=== PATIENT | male | born 1935 | race Caucasian/White ===

== ENCOUNTER 2016-06-02 11:18 | Inpatient (IN) | payer MEDICARE, BC ==
[~2016-06-02] VITALS: Ht 177.8 cm; Wt 97.6 kg
--- NOTE | 2016-06-02 13:26 | PDOC2 ---
CONSULT Date of Admission DATE: 06/02/16 TIME: 13:26 Reason for Consult: atrial fibrillation History of Present Illness Mr Craig is a 80 year old male with history of hypertension, hyperlipidemia and sleep apnea. He presented to his PCP office today with complaints of lightheadedness on standing. An EKG done revealed atrial fibrillation so he was admitted for initiation of medical mgmt and consult was called. Mr Craig denies any history of palpitations, chest discomfort or congestive symptoms. He reports occasionally feeling like he needs to take a deep breath but denies dyspnea. He normally walks almost 2 miles daily without symptoms or stopping. He is able to work in his yard including using a push mower for an hour before needing to stop. He does report feeling like he has less energy or becomes fatigued sooner lately, especially in the evenings. He denies other complaints. He is going out of town next week and will be gone for a week. Past Medical History Hypertension hyperlipidemia GERD with remote history of esophagitis with bleeding depression, sciatica dilatation of aorta Past Surgical History prostatectomy, umbilical hernia repair and bilateral inguinal hernia repairs Family History non contributory Social History remote history of smoking, two drinks daily (none since Mar), no illicit drugs, and lives with Allergies: Coded Allergies: No Known Drug Allergies (Unverified , 06/02/16) Review of System as per HPI or negative General: Alert, Oriented X3, Cooperative, No acute distress HEENT: Atraumatic, EOMI, Other Lungs: Clear to auscultation, Normal air movement Heart: Regular rate, Normal S1, Normal S2, Other (no significant murmurs, no gallops, clicks or rubs) Abdomen: Normal bowel sounds, Soft, No tenderness Extremities: No cyanosis, No edema, Normal pulses Neuro: Normal speech, Strength at 5/5 X4 ext, Cranial nerves 3-12 NL Psych/Mental Status: Mental status NL, Mood NL VITALS BP 131/78, HR 68, afebrile. Tele - sinus rhythm with occasional PACs. Labs pending Assessment/Plan 1. Paroxysmal atrial fibrillation - now sinus rhythm. [id number] score 3. Check echocardiogram for LVEF and structural disease/valvular disease. Plan for Eliquis 5 mg BID unless above testing abnormal. Check TSH, Chemistry and CBC for baseline. Outpatient MCT for atrial fibrillation burden. Outpatient follow up in 4-6 weeks. 2. hypertension- complaints of orthostatic dizziness. Check orthos. Cardura discontinued by PCP. Resume home medications. 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
[2016-06-02 13:48] LABS: CALCIUM 8.5 mg/dL (8.5-10.1); GFR 72.3; POTASSIUM 4.1 mmol/L (3.5-5.1)
[2016-06-02 14:00] VITALS: BP 131/78
[2016-06-02 14:27] LABS: BASO % 1 % (0-3); EOS # 0.2 x10^3/uL (0.0-0.7); EOS % 3 % (0-3); HEMOGLOBIN 13.5 g/dL (13.0-17.5); LYMPH % 15 % (24-48); MEAN CORPUSCULAR HEMOGLOBIN 30 pg (25-35); MEAN CORPUSCULAR HGB CONC 33 g/dL (31-37); MEAN CORPUSCULAR VOLUME 91 fL (79-100); MONO # 0.5 x10^3/uL (0.0-1.1); MONO % 7 % (0-9); NEUT % 75 % (31-73); PLATELET COUNT 199 x10^3/uL (140-400); RED CELL DISTRIBUTION WIDTH 13.7 % (11.5-14.5); WHITE BLOOD COUNT 6.7 x10^3/uL (4.0-11.0)
--- NOTE | 2016-06-02 15:02 | EKG ---
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
[2016-06-02 16:22] VITALS: BP_SYST 107; BP_SYST 121; BP_DIAS 69; BP_DIAS 78
[2016-06-02 16:23] VITALS: BP 131/88
[2016-06-02] MEDS ORDERED: FLUT16SP NS (16:32)
[2016-06-02] MEDS ORDERED: ESCI10TA PO (16:34)
[2016-06-02] MEDS ORDERED: AMLO10TA2 PO (16:34)
[2016-06-02] MEDS ORDERED: OMEP20CA9 PO (16:34)
[2016-06-02] MEDS ORDERED: PRAV40TA2 PO (16:34)
[2016-06-02] MEDS ORDERED: LISI-334 PO (16:34)
--- NOTE | 2016-06-02 17:41 | HP ---
ADMIT DATE: 06/02/2016 HISTORY OF PRESENT ILLNESS: The patient is a 80-year-old male patient, who was admitted directly from his primary care physician's office today with a complaint of lightheadedness on standing. He apparently has had an EKG done there, which showed that he was in atrial fibrillation; however, the rate was controlled around 90. The patient himself denied any chest pain or shortness of breath. He walks about almost 2 miles, four times a week. He actually mows his lawns on his own; however, as of late, he also complained that he is becoming more tired easily. He has never been diagnosed with atrial fibrillation before and was admitted basically for further evaluation and treatment. PAST MEDICAL HISTORY: Significant for hypertension, hyperlipidemia. He is known to have gastroesophageal reflux disease, depression, sciatica and dilatation of the aorta. PAST SURGICAL HISTORY: Significant for prostatectomy for prostate cancer, three hernia repair. He underwent also esophagogastroduodenoscopy and colonoscopy. FAMILY HISTORY: He has 2 brothers. The oldest at the age of 79 secondary to severe emphysema. The second brother at the age of 71 because of thoracic aneurysm. He has half sisters. His father at age of 78 because of CVA and mother at age of 96 because of old age. SOCIAL HISTORY: He is for the last 51 years. He has one daughter and one son. He is an ex-smoker, quit ago. He drinks alcohol on a regular basis daily. 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 REVIEW OF SYSTEMS: The patient denied any blurring of vision, cataract, glaucoma or macular degeneration. Denied any earache, tinnitus or sensorineural deafness. Denied any nosebleeds, stuffy nose or postnasal drip. Denied any sore throat, sore tongue, toothache, hoarseness of voice or difficulty swallowing. Did intentionally lose about 6 bound and planning to lose more. Denied any nausea, vomiting, diarrhea or constipation. Denied any hematemesis, melena or hematochezia. Denied any dysuria, frequency or hematuria. Denied any chest pain, shortness of breath, orthopnea, paroxysmal nocturnal dyspnea. He did complain of lightheadedness, but denied any vertigo. Denied anything spinning around. Denied any chills, rigors or fever. ALLERGIES: He has no known drug allergies. MEDICATIONS: He is currently on following medications: He is on triamcinolone acetonide 0.1% cream applied to affected areas b.i.d., Flonase 1 spray to each nostril once a day, amlodipine 10 mg once a day, Cardura 2 mg at bedtime, Lexapro 10 mg once a day, lisinopril 20 mg twice a day, pravastatin 40 mg at bedtime and omeprazole 20 mg once a day. PHYSICAL EXAMINATION: GENERAL: When I examined him this afternoon, he was sitting at the edge of the bed comfortably, in no apparent respiratory distress. There is no pallor, jaundice, cyanosis, or thyromegaly. No jugular venous distension. No limb edema. VITAL SIGNS: His heart rate was 68, blood pressure 131/78, temperature was 98.8, respiratory rate was 20 and oxygen saturation was 95%. HEAD, EYES, EARS, NOSE AND THROAT: Showed normocephalic, atraumatic. NECK: Supple, with no lymphadenopathy or thyromegaly. No jugular distention. No audible bruits. HEART: Showed normal first and second heart sounds with no gallop, rub or murmur. CHEST: Clear to auscultation. No crepitation or rhonchi. ABDOMEN: Distended, soft, nontender. No guarding or rigidity. No organomegaly. All hernial orifices intact. Bowel sounds normal. NEUROLOGIC: He was awake, alert, responding appropriately. Cranial nerves intact. EXTREMITIES: He moves extremities without difficulty, ambulates without assistance or assistive devices. LABORATORY DATA: This morning showed a serum sodium 139, potassium 4.1, chloride 106, bicarbonate 25, anion gap of 8, BUN 14, creatinine 1, estimated GFR was 72 mL per minute. His glucose was 93. Calcium was 8.5, magnesium 2. His white cell count was 6700, hemoglobin 13.5, hematocrit 41, MCV 91 and platelet count of 199,000 with normal manual differential. The EKGs that came with him from the office showed that he was in atrial fibrillation with ST-T changes in lead I, aVL and lateral leads. There is also marked prolongation of QRS interval of 143 milliseconds consistent with intraventricular conduction defect. ASSESSMENT AND PLAN: We will admit the patient and put him on a telemetry bed, consult the cardiology team. I will arrange for him to have check his labs including his CBC and CMP, check thyroid function tests and check also orthostatics as he is on numerous antihypertensive medication including lisinopril, Cardura as well as amlodipine. We will arrange for him to have carotid Doppler ultrasound and decide on further management accordingly. GALLO GARCIA MD DR: RAJEEV/ángel JOB#: [id number] / [id number]
[2016-06-02 19:46] VITALS: BP 144/89
[2016-06-02] MEDS: LISINOPRIL 20 MG TABLET PO SCH (20:15)
[2016-06-02] MEDS: APIXABAN 5 MG TABLET. PO SCH (20:15)
[2016-06-02] MEDS ORDERED: PRAVASTATIN 20 MG TABLET. PO SCH (21:00)
[2016-06-02 23:01] VITALS: BP 122/81
[2016-06-03 06:30] VITALS: BP 122/72
[2016-06-03] MEDS ORDERED: PANTOPRAZOLE 40 MG TABLET. PO SCH (07:30)
[2016-06-03] MEDS: LISINOPRIL 20 MG TABLET PO SCH (08:01)
[2016-06-03] MEDS: APIXABAN 5 MG TABLET. PO SCH (08:01)
[2016-06-03] MEDS ORDERED: FLUTICASONE 50MCG/NASAL SPRAY 16GM BOTTLE. NS SCH (09:00)
[2016-06-03] MEDS ORDERED: ESCITALOPRAM 10 MG TABLET. PO SCH (09:00)
[2016-06-03] MEDS ORDERED: AMLODIPINE BESYLATE 10 MG TABLET PO SCH (09:00)
--- NOTE | 2016-06-03 14:12 | CARD ---
APPROVED REPORT EXAM: Two-dimensional and M-mode echocardiogram with Doppler and color Doppler. Other Information Quality : Average INDICATION Atrial Fibrillation 2D DIMENSIONS Left Atrium(2D)4.1 (1.6-4.0cm)IVSd1.1 (0.7-1.1cm) Aortic Root(2D)3.2 (2.0-3.7cm)LVDd5.9 (3.9-5.9cm) LVOT Diameter2.5 (1.8-2.4cm)PWd1.0 (0.7-1.1cm) LVDs3.7 (2.5-4.0cm)FS (%) 27.0 % SV112.3 mlLVEF(%)55.0 (>50%) Aortic Valve AoV Peak Christian.121.1cm/sAoV VTI24.6cm AO Peak GR.5.9mmHgLVOT Peak Christian.98.7cm/s LVOT VTI 21.73cmAO Mean GR.3mmHg KARLEE (VMAX)3.22gd4FQT (VTI)4.21cm2 Mitral Valve MV E Ackktikb98.5cm/sMV DECEL FPNZ660az MV A Ouijhnft871.1cm/sE/A Ratio0.7 Tricuspid Valve TR P. Uafrvmai180fl/sRAP TXFPUQUJ3hgCr TR Peak Gr.91mhNpGBSM66wrLg Pulmonary Vein S1 Qralxjom70.7cm/sD2 Rrrdvebp04.9cm/s LEFT VENTRICLE The left ventricle is normal size. There is normal left ventricular wall thickness. The left ventricu lar systolic function is normal and the ejection fraction is within normal range. The Ejection Fracti on is 55%. Poor visualization of the lateral wall. Otherwise, grossly normal. Transmitral Doppler alina w pattern is Grade I-abnormal relaxation pattern. RIGHT VENTRICLE The right ventricle is normal size. The right ventricular systolic function is normal. ATRIA The left atrium is mildly dilated. The right atrium is mildl to moderately dilated. The interatrial s eptum is intact with no evidence for an atrial septal defect or patent foramen ovale as noted on 2-D or Doppler imaging. AORTIC VALVE The aortic valve is not well visualized but appears to be functioning normally by Doppler interrogati on. Doppler and Color Flow revealed trace aortic regurgitation. There is no significant aortic valvul ar stenosis. MITRAL VALVE The mitral valve is normal in structure and function. There is no evidence of mitral valve prolapse. There is no mitral valve stenosis. Doppler and Color-flow revealed mild mitral regurgitation. TRICUSPID VALVE The tricuspid valve is normal in structure and function. Doppler and Color Flow revealed mild tricusp id regurgitation. There is moderate pulmonary hypertension. The PA pressure was estimated at 43 mmHg. There is no tricuspid valve stenosis. PULMONIC VALVE The pulmonic valve is not well visualized but appears to be functioning normally by Doppler interroga tion. Doppler and Color Flow revealed no pulmonic valvular regurgitation. There is no pulmonic valvul ar stenosis. GREAT VESSELS The aortic root is normal in size. The ascending aorta is mildly dilated. The IVC is dilated and reena apses greater than 50% with inspiration. PERICARDIAL EFFUSION There is no evidence of significant pericardial effusion. Critical Notification Critical Value: No <Conclusion> The left ventricular systolic function is normal and the ejection fraction is within normal range. Th e Ejection Fraction is 55%. Poor visualization of the lateral wall. Otherwise, grossly normal. Doppler and Color Flow revealed mild tricuspid regurgitation. There is moderate pulmonary hypertensio n. The PA pressure was estimated at 43 mmHg.
[2016-06-03] MEDS ORDERED: APIX5TAB PO (15:20)
[2016-06-03 15:31] VITALS: BP 137/82
--- NOTE | 2016-06-03 21:37 | DS ---
DATE OF DISCHARGE: 06/03/2016 HOSPITAL COURSE: The patient is a 80-year-old male patient who was admitted directly from his primary care physician's office with a complaint of lightheadedness and an EKG done revealed atrial fibrillation. Although his heart rate was controlled, he was admitted directly for further evaluation and initiation of medical management. His TSH was normal at 1.365. He has had an echocardiogram done, which basically showed that his left ventricular systolic function is normal and ejection fraction is within normal range with an ejection fraction of 55%. Doppler and color flow revealed mild tricuspid regurgitation. There is moderate pulmonary hypertension. The pulmonary artery pressure was estimated at 43 mmHg. A decision was made for him to be discharged home and an event monitor will be mailed to his address from the Cardiology office. He was started on apixaban 5 mg twice a day and we will follow with Dr. Smith in 6 weeks' time. PHYSICAL EXAMINATION: GENERAL: When I saw him this afternoon, he looked well and was clearly in no apparent respiratory distress. No pallor, jaundice, cyanosis, or thyromegaly. No jugular venous distension. No limb edema. VITAL SIGNS: His heart rate was 54, blood pressure was 122/72, temperature was 97.7, respiratory rate was 18 and oxygen saturation was 95%. HEAD, EYES, EARS, NOSE AND THROAT: Normocephalic, atraumatic. NECK: Supple. HEART: Showed normal first and second heart sounds with no gallop, rub or murmur. CHEST: Clear to auscultation. No crepitation or rhonchi. ABDOMEN: Distended, soft, nontender. No guarding or rigidity. No organomegaly. All hernial orifices intact. Bowel sounds normal. NEUROLOGICAL: He is awake, alert, responding appropriately. Cranial nerves are intact. He moves extremities without difficulty, ambulates without assistance or assistive devices. LABORATORY DATA: Showed a serum sodium 139, potassium 4.1, chloride 106, bicarbonate 25, anion gap of 8, BUN 14, creatinine 1. Estimated GFR was 72 mL per minute. His glucose was 93, calcium was 8.5, magnesium 2. TSH was 1.365. White cell count was 6700, hemoglobin 13.5, hematocrit 41, MCV 91 and platelet count of 199,000 with normal manual differential. As I stated his echocardiogram showed that his left ventricular systolic function was normal, the left ventricular wall thickness is normal, left ventricular systolic function is normal with an ejection fraction within normal range. The ejection fraction is 55%. Otherwise, the lateral wall was poorly visualized; however, overall this transmitral Doppler flow pattern is grade 1 abnormal relaxation pattern. Right ventricle is normal in size. Right ventricular systolic function is normal. Left atrium is mildly dilated. The right atrium is mild to moderately dilated. The interatrial septum is intact with no evidence of an atrial septal defect or patent foramen ovale. The aortic valve is not well visualized; however, appears to be functioning normally by Doppler interrogation. The mitral valve is normal in structure and function. There is no evidence of mitral valve prolapse. There is no mitral valve stenosis. Doppler and color flow revealed mitral regurgitation. There was no pericardial effusion. DISCHARGE MEDICATIONS: The patient will be discharged home to continue on following medications: Apixaban for Eliquis 5 mg twice a day, amlodipine besylate 10 mg once a day, escitalopram oxalate 10 mg once a day, Flonase 2 sprays to each nostril once a day, lisinopril 20 mg twice a day, omeprazole 20 mg once a day and pravastatin sodium 40 mg once a day. FINAL DISCHARGE DIAGNOSES: New onset of atrial fibrillation, now rate controlled, now anticoagulated on apixaban, hypertension, hyperlipidemia, gastroesophageal reflux disease. The patient will have an event monitor mailed to him from the Cardiology office and will follow with Dr. Smith in 6 weeks' time. Apparently, he was told that it is safe for him to travel to see his son in [place] ____. GALLO GARCIA MD DR: RAJEEV/ángel JOB#: [id number] / [id number]
== END 2016-06-03 17:00 | disposition home or self-care (01) | DRG 310 ==
LOC: 1 SOUTH 12:35
PROVIDERS: ADMIT Internal Medicine; ATTEND Internal Medicine
DX: I48.0 Paroxysmal atrial fibrillation (principal); E78.5 Hyperlipidemia, unspecified; I07.1 Rheumatic tricuspid insufficiency; I10 Essential (primary) hypertension; F32.9 Major depressive disorder, single episode, unspecified; R06.00 Dyspnea, unspecified; M54.30 Sciatica, unspecified side; I27.2 Other secondary pulmonary hypertension; K21.9 Gastro-esophageal reflux disease without esophagitis; Z79.01 Long term (current) use of anticoagulants; Z82.3 Family history of stroke; Z82.5 Family history of asthma and other chronic lower respiratory diseases; Z85.46 Personal history of malignant neoplasm of prostate; Z87.891 Personal history of nicotine dependence
CPT/HCPCS: 36415; 80048; 83735; 84443; 85027; 93005; 93306

== ENCOUNTER → 2017-10-10 | Outpatient (CLI) | payer MEDICARE, BC ==
[~2017-10-10] MED LIST: AMLO10TA2 PO; APIX5TAB3 PO; ESCITALOPRAM OX10 MG PO; FLUT16SP21 NS; LISI-334 PO; OMEP20CA9 PO; PRAV40TA2 PO
--- NOTE | 2017-10-10 10:03 | CARD ---
MR#: [id number] Date of Study: 10/10/2017 Ordering Physician: SKYLAR BOSWELL, Referring Physician: SKYLAR BOSWELL, Tech: FREDRICK Weaver APPROVED REPORT EXAM: Two-dimensional and M-mode echocardiogram with Doppler and color Doppler. Other Information Quality : FairHR: 61bpm Technically limited study due to body habitus. INDICATION Atrial Fibrillation RISK FACTORS Hypertension 2D DIMENSIONS RVDd3.5 (2.9-3.5cm)Left Atrium(2D)3.7 (1.6-4.0cm) IVSd1.4 (0.7-1.1cm)Aortic Root(2D)4.5 (2.0-3.7cm) LVDd5.1 (3.9-5.9cm)LVOT Diameter2.9 (1.8-2.4cm) PWd1.4 (0.7-1.1cm)LVDs4.2 (2.5-4.0cm) FS (%) 28.0 %SV48.4 ml LVEF(%)55.0 (>50%) Aortic Valve AoV Peak Christian.99.1cm/sAoV VTI22.8cm AO Peak GR.3.9mmHgLVOT Peak Christian.76.8cm/s LVOT VTI 19.80cmAO Mean GR.3mmHg KARLEE (VMAX)5.95sl1PET (VTI)5.77cm2 AI P 1/2 [id number] Mitral Valve MV E Vtrnwggq39.6cm/sMV E Peak Gr.11mmHg MV DECEL [id number] A Rdxvrjme32.7cm/s E/A Ratio0.5 Pulmonary Valve PV Peak Tvptrcbc66.6cm/sPV Peak Grad.3mmHg LEFT VENTRICLE The left ventricle is normal size. There is mild concentric left ventricular hypertrophy. The left ve ntricular systolic function is normal. The Ejection Fraction is 55-60%. There is normal LV segmental wall motion. Transmitral Doppler flow pattern is Grade I-abnormal relaxation pattern. RIGHT VENTRICLE The right ventricle is normal size. The right ventricular systolic function is normal. ATRIA The left atrium size is normal. The interatrial septum is intact with no evidence for an atrial septa l defect or patent foramen ovale as noted on 2-D or Doppler imaging. AORTIC VALVE The aortic valve is thickened but opens well. Doppler and Color Flow revealed mild aortic regurgitati on. There is no significant aortic valvular stenosis. There is no aortic valvular vegetation. MITRAL VALVE The mitral valve is thickened but opens well. There is no evidence of mitral valve prolapse. There is no mitral valve stenosis. Doppler and Color-flow revealed trace mitral regurgitation. TRICUSPID VALVE The tricuspid valve is not well visualized. Trace tricuspid regurgitation. There is no tricuspid valv e stenosis. PULMONIC VALVE The pulmonic valve is not well visualized. Doppler and Color Flow revealed no pulmonic valvular regur gitation. There is no pulmonic valvular stenosis. GREAT VESSELS The aortic root is mildly to moderately enlarged. The IVC was not visualized. PERICARDIAL EFFUSION There is no pleural effusion. There is no evidence of significant pericardial effusion. Critical Notification Critical Value: No <Conclusion> Technically difficult study. The left ventricular systolic function is normal. The Ejection Fraction is 55-60%. There is normal LV segmental wall motion. Transmitral Doppler flow pattern is Grade I-abnormal relaxation pattern. Mild aortic regurgitation. Trace mitral regurgitation. Trace tricuspid regurgitation. The aortic root is enlarged 4.5 cm. There is no evidence of significant pericardial effusion. Signed by : Juan Sepulveda, Electronically Approved : 10/10/2017 10:03:18
== END | disposition home or self-care (01) ==
LOC: ECHO 07:48
PROVIDERS: ATTEND Internal Medicine Cardiovascular Disease
DX: I35.1 Nonrheumatic aortic (valve) insufficiency (principal); I10 Essential (primary) hypertension; E78.5 Hyperlipidemia, unspecified; K21.9 Gastro-esophageal reflux disease without esophagitis; Z87.891 Personal history of nicotine dependence; Z85.46 Personal history of malignant neoplasm of prostate; Z82.3 Family history of stroke; Z82.5 Family history of asthma and other chronic lower respiratory diseases
CPT/HCPCS: 93306

== ENCOUNTER → 2018-05-23 | Outpatient (CLI) | payer MEDICARE, BC ==
[~2018-05-23] MED LIST changes: -AMLO10TA2 PO; +AMLO10TA8 PO
--- NOTE | 2018-05-23 13:18 | RAD ---
CT of the chest without contrast, 05/23/2018: HISTORY: Follow-up lung nodule Noncontrast scans were obtained as requested. On image 758 of series #2 a slightly irregular groundglass opacity is again noted in the left upper lobe. It measures 1.3 cm in greatest diameter. No solid component is seen. It has shown no definite change since 10/25/2017. A 5 mm subpleural nodule in the posterior lateral aspect of the right lower lobe seen on image 217 of series #2 also appears unchanged. There are scattered linear opacities in the lungs compatible with scars. No pulmonary consolidation or new parenchymal abnormality is seen. There is no evidence of pleural fluid. There is mild calcific plaquing of the thoracic aorta. The aortic root is mildly prominent measuring approximately 4.4 cm in width. The ascending aorta distal to this level measures 4.0 cm. Similar findings were present on the previous study. Moderate coronary artery calcifications are present. No mediastinal adenopathy is evident. A small hiatal hernia is noted. Several hepatic cysts are again noted. The largest of which measures nearly 6 cm. There is a 7.6 cm left renal cyst. Mild scattered degenerative changes are present in the spine. IMPRESSION: 1. Stable small right lower lobe pulmonary nodule. 2. Unchanged left upper lobe groundglass opacity. This is a nonspecific appearance which could be due to scarring, atypical adenomatous hyperplasia or low-grade adenocarcinoma. Further CT follow-up is suggested. 3. Calcific plaquing the aorta with stable borderline dilatation of the ascending aorta. 4. Coronary artery calcifications. 5. Small hiatal hernia. 6. Hepatic and renal cysts. PQRS Compliance Statement: One or more of the following individualized dose reduction techniques were utilized for this examination: 1. Automated exposure control 2. Adjustment of the mA and/or kV according to patient size 3. Use of iterative reconstruction technique Electronically signed by: Chinmay Okeefe MD (05/23/2018 1:15 PM) [facility]
== END | disposition home or self-care (01) ==
LOC: CT 10:59
PROVIDERS: ATTEND Family Medicine
DX: R91.1 Solitary pulmonary nodule (principal); I70.0 Atherosclerosis of aorta; I25.10 Atherosclerotic heart disease of native coronary artery without angina pectoris; K44.9 Diaphragmatic hernia without obstruction or gangrene; N28.1 Cyst of kidney, acquired; K76.89 Other specified diseases of liver
CPT/HCPCS: 71250

== ENCOUNTER → 2018-09-18 | Outpatient (CLI) | payer MEDICARE, BC ==
[~2018-09-18] MED LIST changes: +OMEP20CA10 PO; -OMEP20CA9 PO
--- NOTE | 2018-09-18 10:05 | CARD ---
MR#: [id number] Date of Study: 09/18/2018 Ordering Physician: SKYLAR BOSWELL, Referring Physician: SKYLAR BOSWELL, Tech: Eda Sun [facility] APPROVED REPORT EXAM: Two-dimensional and M-mode echocardiogram with Doppler and color Doppler. Other Information Quality : AverageHR: 80bpm Rhythm : OtherTechnically limited study due to body habitus. INDICATION Aortic aneurysm 2D DIMENSIONS RVDd4.1 (2.9-3.5cm)Left Atrium(2D)4.2 (1.6-4.0cm) IVSd1.6 (0.7-1.1cm)Aortic Root(2D)4.2 (2.0-3.7cm) LVDd4.6 (3.9-5.9cm)LVOT Diameter2.9 (1.8-2.4cm) PWd1.2 (0.7-1.1cm)LVDs3.1 (2.5-4.0cm) FS (%) 32.0 %SV58.7 ml LVEF(%)60.2 (>50%) M-Mode DIMENSIONS Left Atrium(MM)4.84 (2.5-4.0cm)Aortic Root3.94 (2.2-3.7cm) Aortic Valve AoV Peak Christian.91.8cm/sAoV VTI15.5cm AO Peak GR.3.4mmHgLVOT Peak Christian.58.5cm/s LVOT VTI 12.22cmAO Mean GR.2mmHg KARLEE (VMAX)4.16yd1RMF (VTI)4.90cm2 Mitral Valve MV E Tzbnsprl996.6cm/sMV DECEL NUXG520wc MV A Oyoqearw08.9cm/sE/A Ratio2.8 Pulmonary Valve PV Peak Dmwvnxoh208.8cm/sPV Peak Grad.4mmHg Tricuspid Valve TR P. Swefkaft467sb/sRAP FRFRGWCS7vuZs TR Peak Gr.35ozUoWAXK70pnQh LEFT VENTRICLE The left ventricle is normal size. There is mild to moderate concentric left ventricular hypertrophy. The left ventricular systolic function is normal and the ejection fraction is within normal range. T he Ejection Fraction is 55-60%. There is normal LV segmental wall motion. Tissue Doppler imaging reve als moderate left ventricular diastolic dysfunction. RIGHT VENTRICLE The right ventricle is mildly dilated. There is normal right ventricular wall thickness. The right ve ntricular systolic function is normal. ATRIA The left atrium is mildly dilated. The right atrium is mildly dilated. The interatrial septum is inta ct with no evidence for an atrial septal defect or patent foramen ovale as noted on 2-D or Doppler im aging. AORTIC VALVE The aortic valve is trileaflet. The aortic valve is mildly calcified. Doppler and Color Flow revealed trace aortic regurgitation. There is no significant aortic valvular stenosis. There is no aortic pilar vular vegetation. MITRAL VALVE The mitral valve is normal in structure and function. There is no evidence of mitral valve prolapse. There is no mitral valve stenosis. Doppler and Color-flow revealed mild mitral regurgitation. TRICUSPID VALVE The tricuspid valve is normal in structure and function. Doppler and Color Flow revealed trace to mil d tricuspid regurgitation. The PA pressure was estimated at 38 mmHg. There is no tricuspid valve prol apse or vegetation. There is no tricuspid valve stenosis. PULMONIC VALVE The pulmonic valve is not well visualized. GREAT VESSELS The aortic root is mildly enlarged at 4.2cm. The ascending aorta is Mildly dilated at 4.2cm. The IVC is normal in size and collapses >50% with inspiration. PERICARDIAL EFFUSION There is no evidence of significant pericardial effusion. Critical Notification Critical Value: No <Conclusion> The left ventricular systolic function is normal and the ejection fraction is within normal range. Th e Ejection Fraction is 55-60%. There is normal LV segmental wall motion. The ascending aorta is Mildly dilated at 4.2cm. Technically difficult study Signed by : Skylar Boswell, Electronically Approved : 09/18/2018 10:05:32
== END | disposition home or self-care (01) ==
LOC: ECHO 08:42
PROVIDERS: ATTEND Internal Medicine Cardiovascular Disease
DX: I08.2 Rheumatic disorders of both aortic and tricuspid valves (principal); I77.89 Other specified disorders of arteries and arterioles; I71.9 Aortic aneurysm of unspecified site, without rupture
CPT/HCPCS: 93306

== ENCOUNTER → 2019-08-20 | Outpatient (CLI) | payer MEDICARE, BC ==
[~2019-08-20] MED LIST changes: -OMEP20CA10 PO; +OMEP20CA16 PO
--- NOTE | 2019-08-20 11:38 | CARD ---
MR#: [id number] Date of Study: 08/20/2019 Ordering Physician: SKYLAR SMITH, Referring Physician: SKYLAR SMITH, Tech: Madelaine Jenkins APPROVED REPORT EXAM: Two-dimensional and M-mode echocardiogram with Doppler and color Doppler. Other Information Quality : FairHR: 58bpm Technically limited study due to body habitus. INDICATION Atrial Fibrillation Cardiac Disease: CAD RISK FACTORS Hypertension Hyperlipidemia 2D DIMENSIONS Left Atrium(2D)4.5 (1.6-4.0cm)IVSd1.3 (0.7-1.1cm) Aortic Root(2D)3.7 (2.0-3.7cm)LVDd5.9 (3.9-5.9cm) LVOT Diameter2.3 (1.8-2.4cm)PWd1.2 (0.7-1.1cm) LVDs2.8 (2.5-4.0cm)FS (%) 52.5 % SV141.9 mlLVEF(%)60.9 (>50%) Aortic Valve AoV Peak Christian.143.2cm/sAoV VTI27.7cm AO Peak GR.8.2mmHgLVOT Peak Christian.81.8cm/s LVOT VTI 19.17cmAO Mean GR.4mmHg KARLEE (VMAX)2.22me3LBI (VTI)2.79cm2 AI P 1/2 [id number] Mitral Valve MV E Gpxisnsy89.3cm/sMV E Peak Gr.130mmHg MV DECEL [id number] A Szeyxyln29.7cm/s MV E Mean Gr.1mmHgE/A Ratio0.6 Pulmonary Valve PV Peak Gyvbafwh81.9cm/sPV Peak Grad.3mmHg Tricuspid Valve TR P. Adwabpme224jw/sRAP WJJHEBXU4zySg TR Peak Gr.75wuGkTQLU08ylPl Pulmonary Vein S1 Qwwxwdcl05.3cm/sD2 Krwviojz33.5cm/s LEFT VENTRICLE The left ventricle is normal size. There is mild to moderate concentric left ventricular hypertrophy. The left ventricular systolic function is normal and the ejection fraction is within normal range. T he Ejection Fraction is 50-55%. There is normal LV segmental wall motion. Transmitral Doppler flow pa ttern is Grade I-abnormal relaxation pattern. RIGHT VENTRICLE The right ventricle is normal size. There is normal right ventricular wall thickness. The right ventr icular systolic function is normal. ATRIA The left atrium size is normal. The right atrium is borderline dilated. The interatrial septum is int act with no evidence for an atrial septal defect or patent foramen ovale as noted on 2-D or Doppler i maging. AORTIC VALVE The aortic valve is normal in structure and function. Doppler and Color Flow revealed mild aortic reg urgitation. Calculated aortic valve area is 2.3 cm2 with maximum pressure gradient of 9 mmHg and mean pressure gradient of 5 mmHg. There is no aortic valvular vegetation. MITRAL VALVE The mitral valve is normal in structure and function. There is no evidence of mitral valve prolapse. There is no mitral valve stenosis. Doppler and Color-flow revealed mild mitral regurgitation. TRICUSPID VALVE The tricuspid valve is normal in structure and function. Doppler and Color Flow revealed trace tricus pid regurgitation with an estimated PAP of 36 mmHg. There is no tricuspid valve stenosis. PULMONIC VALVE The pulmonic valve is not well visualized. Doppler and Color Flow revealed no pulmonic valvular regur gitation. There is no pulmonic valvular stenosis. GREAT VESSELS The aortic root is normal in size. The ascending aorta is Mildly dilated at 3.9cm. The IVC was not we ll visualized. PERICARDIAL EFFUSION There is no evidence of significant pericardial effusion. Critical Notification Critical Value: No <Conclusion> The left ventricular systolic function is normal and the ejection fraction is within normal range. Th e Ejection Fraction is 50-55%. There is normal LV segmental wall motion. Doppler and Color Flow revealed mild aortic regurgitation. Signed by : Skylar Smith, Electronically Approved : 08/20/2019 11:38:14
== END | disposition home or self-care (01) ==
LOC: ECHO 09:50
PROVIDERS: ATTEND Internal Medicine Cardiovascular Disease
DX: I08.0 Rheumatic disorders of both mitral and aortic valves (principal); I11.9 Hypertensive heart disease without heart failure; I25.10 Atherosclerotic heart disease of native coronary artery without angina pectoris; I48.91 Unspecified atrial fibrillation
CPT/HCPCS: 93306

== ENCOUNTER → 2020-03-12 | Outpatient (CLI) | payer MEDICARE, BC ==
[~2020-03-12] MED LIST changes: +AMLO-187 PO; -AMLO10TA8 PO
--- NOTE | 2020-03-12 12:39 | RAD ---
PQRS Compliance Statement: One or more of the following individualized dose reduction techniques were utilized for this examinat ion: 1. Automated exposure control 2. Adjustment of the mA and/or kV according to patient size 3. Use of iterative reconstruction technique CT THORAX WO 03/12/2020 9:02 AM Indication: Right lower lobe nodule COMPARISON: CT chest 05/23/2018 TECHNIQUE: Multiple axial CT images of the chest were obtained without intravenous contrast. Coronal and sagittal reformats are provided. FINDINGS: Stable 6 mm subpleural solid noncalcified pulmonary nodule in the right lower lobe (series 2, image 1 94). No new or enlarging solid noncalcified pulmonary nodules. Stable groundglass nodule in the left upper lobe measuring 1.7 x 1.7 cm (series 2, image 66), favoring benign etiology given stability. New groundglass changes are identified at the left lung base which may represent atelectasis versus deve loping pneumonitis of infectious/inflammatory etiology. Bronchial wall thickening compatible with non specific bronchitis. Thyroid gland is normal in appearance. No new or enlarging thoracic lymphadenopa thy. Heart size within normal limits. Three-vessel coronary vascular calcific effusions are present. Small hiatal hernia. Simple appearing renal and headaches cysts are present. No suspicious osseous ab normality is identified. IMPRESSION: 1. Stable subpleural solid noncalcified pulmonary nodule measuring 6 mm in the right lower lobe presu med benign given stability. 2. Left upper lobe groundglass opacity measuring 1.7 x 1.[address] chest at 3 and 5 years ma y be of benefit to assess stability. 3. Coronary and aortic atherosclerotic calcification. 4. Small hiatal hernia. 5. Stable hepatic and renal cysts. Electronically signed by: Odalis Dickson MD (03/12/2020 12:36 PM) [facility]
== END ==
LOC: CT 08:18
PROVIDERS: ATTEND Physician Assistant
DX: R91.1 Solitary pulmonary nodule (principal); K44.9 Diaphragmatic hernia without obstruction or gangrene; N28.1 Cyst of kidney, acquired; I31.3 Pericardial effusion (noninflammatory)
CPT/HCPCS: 71250

== ENCOUNTER → 2020-05-06 | Outpatient (CLI) | payer MEDICARE, BC ==
[~2020-05-06] MED LIST changes: -LISI-334 PO; +LISI20TA18 PO
--- NOTE | 2020-05-06 13:15 | RAD ---
EXAM: Lumbar spine, 3 views. HISTORY: Pain. COMPARISON: None. FINDINGS: 3 views lumbar spine are obtained. There is mild lumbar dextrocurvature. There is grade 2 a nterolisthesis of L5 on S1 with associated pars defects. There is grade 1 listhesis of L4 and L5 and minimal retrolisthesis of L1 on L2, L2 on L3, and L3 on L4. There is multilevel endplate remodeling w ith disc space narrowing and spurring, predominantly at the thoracolumbar junction and lumbosacral ju nction. There is advanced facet arthropathy at the mid lower lumbar levels. There are surgical clips overlying the pelvis. IMPRESSION: 1. Grade 2 anterolisthesis of L5 on S1 with suspected pars defects. 2. Mild grade 1 anterolisthesis of L4 on L5 and minimal retrolisthesis at the remainder the lumbar le vels. 3. Multilevel degenerative change, predominantly at the lumbosacral junction and thoracolumbar juncti on. Electronically signed by: Virginia Tapia MD (05/06/2020 1:12 PM) [id number]
== END ==
LOC: RAD 10:33
PROVIDERS: ATTEND Family Medicine
DX: M47.817 Spondylosis without myelopathy or radiculopathy, lumbosacral region (principal); M43.17 Spondylolisthesis, lumbosacral region; M47.815 Spondylosis without myelopathy or radiculopathy, thoracolumbar region
CPT/HCPCS: 72100

== ENCOUNTER 2020-07-20 08:29 | Emergency (ER) | payer MEDICARE, BC ==
[~2020-07-20] VITALS: Ht 177.8 cm; Wt 102.6 kg
--- NOTE | 2020-07-20 09:12 | PHYS DOC ---
Past History Past Medical History: A-Fib, Anxiety, Depression, High Cholesterol, Hypertension Past Surgical History: Other Additional Past Surgical Histo: prostatectomy; skin cancer Alcohol Use: Occasionally Additional Alcohol Information: 1-1.5 oz bourban daily General Adult EDM: Chief Complaint: SHORTNESS OF BREATH HPI: HPI: Patient is a 84-year-old male coming in for palpitations, dyspnea exertion, racing heartbeat since yesterday. Patient has been under increased stress. Has a history of atrial fibrillation but had a cardioversion last fall with Dr. Timur cornell. He states he is recently had a productive cough that has been better today. Denies any chest pain, fevers, vomiting or diarrhea. Is anticoagulated with Eliquis. Review of Systems: Review of Systems: All other systems within normal limits except for as noted in the HPI Allergies: Allergies: Allergies Coded Allergies Type Severity Reaction Last Updated Verified No Known Drug Allergies 07/20/20 No Physical Exam: PE: Constitutional: Well developed, well nourished, no acute distress, non-toxic appearance. [] HENT: Normocephalic, atraumatic, bilateral external ears normal, nose normal. [] Eyes: PERRLA, conjunctiva normal, no discharge. [] Neck: No rigidity, supple, no stridor. [] Cardiovascular: Tachycardia, irregularly irregular rhythm, brisk cap refill, symmetric radial pulses [] Lungs & Thorax: Non labored symmetric respirations, no tachypnea or respiratory distress. Clear auscultation [] Abdomen: Soft, nondistended. Skin: Warm, dry, no erythema, no rash. [] Back: Unremarkable Extremities: No deformities, range of motion grossly intact, no lower extremity edema [] Neurologic: Alert and oriented X 3, no focal deficits noted. [] Psychologic: Affect normal, judgement normal, mood normal. [] Current Patient Data: Vital Signs: Vital Signs Date Time Temp Pulse Resp B/P (MAP) Pulse Ox O2 Delivery O2 Flow Rate FiO2 07/20/20 08:39 97.6 155 22 158/91 (113) 96 Room Air EKG: EKG: Irregular regular rhythm, heart rate 130 bpm, left axis deviation, incomplete right bundle branch block, left anterior fascicular block [] Radiology/Procedures: Radiology/Procedures: Study: XR CHEST 2V Indication: Dyspnea. Comparison: CT chest 03/12/2020 Findings: The cardiomediastinal silhouette is at the upper limits of normal for size. Relatively symmetric hitesh. Somewhat flattened diaphragm and increased AP dimension of the chest. Mild atelectasis/scarring at the lung bases. No lobar consolidation, layering effusion or pneumothorax. Impression: Constellation of findings which can be seen with underlying COPD. Correlate for a smoking history. No radiographic manifestations of decompensated congestive heart failure or an organizing pneumonia.[] Heart Score: C/O Chest Pain: No Risk Factors: Risk Factors: DM, Current or recent (<one month) smoker, HTN, HLP, family history of CAD, obesity. Risk Scores: Score 0 - 3: 2.5% MACE over next 6 weeks - Discharge Home Score 4 - 6: 20.3% MACE over next 6 weeks - Admit for Clinical Observation Score 7 - 10: 72.7% MACE over next 6 weeks - Early Invasive Strategies Course & Med Decision Making: Course & Med Decision Making Pertinent Labs and Imaging studies reviewed. (See chart for details) Heart rate improved to around 80 bpm , patient is not taking his metoprolol at home. Discussed plan to have him restart his metoprolol and follow-up with his neuroscience director na. [] Dragon Disclaimer: Dragon Disclaimer: This electronic medical record was generated, in whole or in part, using a voice recognition dictation system. Departure Departure: Impression: Primary Impression: Atrial fibrillation Disposition: HOME / SELF CARE / HOMELESS Condition: STABLE Referrals: PATO SOMMERS MD (PCP) SKYLAR BOSWELL MD Patient Instructions: Atrial Fibrillation Additional Instructions: Restart your metoprolol, 12.5 mg twice a day. GERMÁN VILLEGAS MD July 20, 2020 09:12
[2020-07-20 09:22] LABS: BASO # 0.1 x10^3/uL (0.0-0.2); BASO % 1 % (0-3); EOS # 0.2 x10^3/uL (0.0-0.7); EOS % 2 % (0-3); HEMATOCRIT 49.5 % (39.0-53.0); HEMOGLOBIN 16.6 g/dL (13.0-17.5); LYMPH # 1.4 x10^3/uL (1.0-4.8); LYMPH % 19 % (24-48); MEAN CORPUSCULAR HEMOGLOBIN 32 pg (25-35); MEAN CORPUSCULAR HGB CONC 34 g/dL (31-37); MEAN CORPUSCULAR VOLUME 94 fL (79-100); MONO # 0.5 x10^3/uL (0.0-1.1); MONO % 7 % (0-9); NEUT # 5.3 x10^3uL (1.8-7.7); NEUT % 71 % (31-73); PLATELET COUNT 241 x10^3/uL (140-400); RED BLOOD COUNT 5.28 x10^6/uL (4.30-5.70); RED CELL DISTRIBUTION WIDTH 14.3 % (11.5-14.5); WHITE BLOOD COUNT 7.4 x10^3/uL (4.0-11.0)
[2020-07-20 09:24] LABS: CALCIUM 8.8 mg/dL (8.5-10.1); GFR 71.5; POTASSIUM 4.3 mmol/L (3.5-5.1)
[2020-07-20 09:36] LABS: ALBUMIN 2.8 g/dL (3.4-5.0); ALBUMIN/GLOBULIN RATIO 0.8 (1.0-1.7); MAGNESIUM 2.1 mg/dL (1.8-2.4); TOTAL BILIRUBIN 0.9 mg/dL (0.2-1.0); TOTAL PROTEIN 6.1 g/dL (6.4-8.2)
--- NOTE | 2020-07-20 09:50 | RAD ---
Study: XR CHEST 2V Indication: Dyspnea. Comparison: CT chest 03/12/2020 Findings: The cardiomediastinal silhouette is at the upper limits of normal for size. Relatively symmetric hitesh . Somewhat flattened diaphragm and increased AP dimension of the chest. Mild atelectasis/scarring at th e lung bases. No lobar consolidation, layering effusion or pneumothorax. Impression: Constellation of findings which can be seen with underlying COPD. Correlate for a smoking history. No radiographic manifestations of decompensated congestive heart failure or an organizing pneumonia. Electronically signed by: LENCHO JO MD (07/20/2020 9:48 AM) [facility]ESEN[facility]
[2020-07-20] MEDS: METOPROLOL TARTRATE 5 MG/5 ML VIAL. IV ONE (10:19)
[2020-07-20 10:32] LABS: BILIRUBIN,URINE NEG (NEG); CLARITY,URINE HAZY; COLOR,URINE YELLOW; GLUCOSE,URINE NEG (NEG)
[2020-07-20 10:33] LABS: BACTERIA,URINE 0 /HPF (0-FEW); NITRITE,URINE NEG (NEG); SQUAMOUS EPITHELIAL CELL,UR OCC /LPF; UROBILINOGEN,URINE 0.2 mg/dL (0.2 mg/dL); WBC,URINE OCC /HPF (0-4)
[2020-07-20 10:35] VITALS: BP 135/87
--- NOTE | 2020-07-20 18:36 | EKG ---
[address] [address] Test Date: 2020-07-20 Test Time: 08:40:06 Pat Name: MATTEO LOMBARDI Department: Room: Gender: M [employer]er: SESAR : 1935 Requested By: GERMÁN VILLEGAS Order Number: [id number] Reading MD: Juan Sepulveda Measurements Intervals Niotaze Rate: 133 P: MT: QRS: -46 QRSD: 120 T: 114 QT: 332 QTc: 496 Interpretive Statements ATRIAL FIBRILLATION WITH RVR ABNORMAL LEFT AXIS DEVIATION LEFT ANTERIOR FASCICULAR BLOCK INCOMPLETE RIGHT BUNDLE BRANCH BLOCK LVH WITH REPOLARIZATION ABNORMALITY ABNORMAL ECG Electronically Signed On 07-21-2020 15:04:52 CDT by Juan Sepulveda
== END 2020-07-20 10:54 | disposition home or self-care (01) ==
LOC: ER 08:29
DX: I48.91 Unspecified atrial fibrillation (principal); F41.9 Anxiety disorder, unspecified; F32.9 Major depressive disorder, single episode, unspecified; E78.00 Pure hypercholesterolemia, unspecified; I10 Essential (primary) hypertension
CPT/HCPCS: 36415; 71046; 80053; 81001; 83735; 83880; 84484; 85025; 93005; 96374; 99285; J3490

== ENCOUNTER → 2020-11-24 | Outpatient (CLI) | payer MEDICARE, BC ==
--- NOTE | 2020-11-24 13:24 | CARD ---
MR#: [id number] Date of Study: 11/24/2020 Ordering Physician: SKYLAR SMITH, Referring Physician: SKYLAR SMITH, Tech: Madelaine Jenkins, [facility] APPROVED REPORT EXAM: Two-dimensional and M-mode echocardiogram with Doppler and color Doppler. Other Information Quality : AverageHR: 53bpm INDICATION Mitral Valve Disease RISK FACTORS Hypertension Hyperlipidemia 2D DIMENSIONS Left Atrium(2D)4.2 (1.6-4.0cm)IVSd1.2 (0.7-1.1cm) Aortic Root(2D)4.1 (2.0-3.7cm)LVDd6.2 (3.9-5.9cm) LVOT Diameter2.2 (1.8-2.4cm)PWd1.4 (0.7-1.1cm) LVDs4.5 (2.5-4.0cm)FS (%) 27.3 % SV101.2 mlLVEF(%)52.2 (>50%) Aortic Valve AoV Peak Christian.144.6cm/sAoV VTI33.2cm AO Peak GR.8.4mmHgLVOT Peak Christian.88.2cm/s LVOT VTI 21.49cmAO Mean GR.5mmHg KARLEE (VMAX)2.44gl9OBI (VTI)2.52cm2 AI P 1/2 [id number] Mitral Valve MV E Gezrdbit88.4cm/sMV E Peak Gr.111mmHg MV DECEL [id number] A Bzwhhlus77.7cm/s MV E Mean Gr.1mmHgE/A Ratio0.9 Pulmonary Valve PV Peak Gpxzytnz798.2cm/sPV Peak Grad.4mmHg Tricuspid Valve TR P. Ljqqwkbs768ox/sRAP TZMRLHEY2arCg TR Peak Gr.39fvKxAPYU42pqOu Pulmonary Vein S1 Uduoetse33.5cm/sD2 Hogjpfdc75.9cm/s LEFT VENTRICLE The Left Ventricle is mildly dilated. There is mild to moderate concentric left ventricular hypertrop hy. The left ventricular systolic function is normal and the ejection fraction is within normal range . The Ejection Fraction is 55%. There is normal LV segmental wall motion. Tissue Doppler imaging reve als mild left ventricular diastolic dysfunction. RIGHT VENTRICLE The right ventricle is normal size. There is normal right ventricular wall thickness. The right ventr icular systolic function is normal. ATRIA The left atrium size is normal. The right atrium is mildly dilated. The interatrial septum is intact with no evidence for an atrial septal defect or patent foramen ovale as noted on 2-D or Doppler imagi ng. AORTIC VALVE The aortic valve is not well visualized. Doppler and Color Flow revealed trace aortic regurgitation. There is no significant aortic valvular stenosis. Calculated aortic valve area is 2.8 cm2 with maximu m pressure gradient of 5 mmHg and mean pressure gradient of 3 mmHg. MITRAL VALVE The mitral valve is normal in structure and function. There is no evidence of mitral valve prolapse. There is no mitral valve stenosis. Doppler and Color-flow revealed trace to mild mitral regurgitation . TRICUSPID VALVE The tricuspid valve is normal in structure and function. Doppler and Color Flow revealed trace tricus pid regurgitation with an estimated PAP of 39 mmHg. There is no tricuspid valve stenosis. PULMONIC VALVE The pulmonic valve is not well visualized. Doppler and Color Flow revealed trace pulmonic valvular re gurgitation. There is no pulmonic valvular stenosis. GREAT VESSELS The aortic root is normal in size. The ascending aorta is normal in size. The IVC is normal in size a nd collapses >50% with inspiration. PERICARDIAL EFFUSION There is no evidence of significant pericardial effusion. Critical Notification Critical Value: No <Conclusion> The left ventricular systolic function is normal and the ejection fraction is within normal range. Th e Ejection Fraction is 55%. There is normal LV segmental wall motion. Signed by : Skylar Smith, Electronically Approved : 11/24/2020 13:23:35
== END ==
LOC: ECHO 09:33
PROVIDERS: ATTEND Internal Medicine Cardiovascular Disease
DX: I34.0 Nonrheumatic mitral (valve) insufficiency (principal); I51.7 Cardiomegaly
CPT/HCPCS: 93306